=== PATIENT | female | born 1990 | race Hispanic/Latino ===

== ENCOUNTER 2020-05-05 11:06 | Outpatient (CLI) | payer OTHER ==
--- NOTE | 2020-05-05 12:02 | ULT ---
Ultrasound right breast limited: 05/05/2020 HISTORY: 29-year-old female with pain and palpable lumps in right lower inner quadrant. TECHNIQUE: Scan from 3:00 to 6:00 FINDINGS: There is no solid or cystic mass, architectural distortion, or suspicious shadowing. IMPRESSION: BI-RADS 1-negative
--- NOTE | 2020-05-05 12:03 | ULT ---
Ultrasound left breast limited: 05/05/2020 HISTORY: 29-year-old female with pain and palpable lumps in left lower inner quadrant. TECHNIQUE: Scan from 6:00 to 9:00 FINDINGS: There is no solid or cystic mass, architectural distortion, or suspicious shadowing. IMPRESSION: BI-RADS 1-negative
== END 2020-05-05 11:07 | disposition home or self-care (01) ==
LOC: BICULT 11:06
PROVIDERS: ATTEND Nurse Practitioner Family
DX: N60.99 Unspecified benign mammary dysplasia of unspecified breast (principal)